=== PATIENT | female | born 1970 | race Two or more races ===

== ENCOUNTER 2017-04-11 08:34 | Inpatient (IN) | payer OTHER ==
[~2017-04-11] VITALS: Ht 165.1 cm; Wt 86.4 kg
[2017-04-11 08:51] VITALS: Ht 165.1 cm; Wt 86.4 kg
[2017-04-11 12:08] LABS: BASOPHIL % 0.6 % (0-2); PLATELET COUNT 276 x10^3mcL (130-400)
[2017-04-11 12:09] LABS: RED CELL DISTRIBUTION WIDTH 14.7 % (11.5-14.5)
[2017-04-11 12:14] LABS: CALCIUM 8.4 mg/dL (8.5-10.1); CARBON DIOXIDE 26.8 mmol/L (21-32); CHLORIDE SERUM 104 mmol/L (98-107); CREATININE SERUM 0.6 mg/dL (0.6-1.0); GFR1 > 60 mL/min; GLUCOSE SERUM 99 mg/dL (74-106); POTASSIUM SERUM 4.2 mmol/L (3.5-5.1); SODIUM SERUM 139 mmol/L (136-145)
[2017-04-11 12:25] LABS: ALKALINE PHOSPHATASE 55 U/L (46-116); ALT/SGPT 25 U/L (14-59); AST/SGOT 14 U/L (15-37); BILIRUBIN TOTAL 0.3 mg/dL (0.20-1.00); TOTAL PROTEIN, SERUM 7.3 g/dL (6.4-8.2)
[2017-04-11 12:54] LABS: ALBUMIN 3.3 g/dL (3.4-5.0)
[2017-04-11] MEDS ORDERED: CIPRO250 MG (14:42)
[2017-04-11] MEDS ORDERED: NATURAL IRON65 MG (14:43)
[2017-04-11] MEDS ORDERED: MASON NATURAL1000 IU (14:43)
[2017-04-11 16:06] VITALS: BP 129/77
[2017-04-11 16:32] LABS: CHOLESTEROL/HDL RATIO 2.9; MAGNESIUM 1.8 mg/dL (1.8-2.4); PHOSPHOROUS 3.3 mg/dL (2.5-4.9)
[2017-04-11 16:38] LABS: T3 TOTAL 0.93 ng/mL
[2017-04-11 16:53] LABS: FREE T4 1.4 ng/dL (0.76-1.46); FREE THYROXINE INDEX 2.5 ug/dL (1.4-4.5); T4(THYROXINE) 7.3 ug/dL (4.7-13.3)
[2017-04-11 20:35] LABS: microscopic required? NO
[2017-04-11 20:40] LABS: UA SPECIFIC GRAVITY 1.015 (1.005-1.035); urine erythrocyte NEGATIVE (NEGATIVE)
[2017-04-11 21:15] VITALS: BP 127/71
[2017-04-12 05:26] VITALS: BP 125/76
[2017-04-12 07:34] LABS: BASOPHIL % 0.4 % (0-2); PLATELET COUNT 258 x10^3mcL (130-400); RED CELL DISTRIBUTION WIDTH 15.2 % (11.5-14.5)
[2017-04-12 08:27] LABS: CALCIUM 8.7 mg/dL (8.5-10.1); CHLORIDE SERUM 107 mmol/L (98-107); CREATININE SERUM 0.7 mg/dL (0.6-1.0); GFR1 > 60 mL/min; GLUCOSE SERUM 91 mg/dL (74-106); MAGNESIUM 1.8 mg/dL (1.8-2.4); PHOSPHOROUS 4.3 mg/dL (2.5-4.9); POTASSIUM SERUM 4.5 mmol/L (3.5-5.1); SODIUM SERUM 141 mmol/L (136-145)
[2017-04-12 08:36] VITALS: BP 136/84
[2017-04-12 12:19] VITALS: BP 128/84
[2017-04-12 16:33] VITALS: BP 124/70
[2017-04-12 21:05] VITALS: BP 145/90
[2017-04-12] MEDS ORDERED: LIPI10 PO (23:14)
[2017-04-12] MEDS ORDERED: COL100 PO (23:15)
[2017-04-12] MEDS ORDERED: APAP/HYDROCODON1 T13 PO (23:15)
[2017-04-12] MEDS ORDERED: MECLIZINE HYDRO25 M1 PO (23:15)
[2017-04-12] MEDS ORDERED: SIMETHICONE80 MG CH (23:15)
[2017-04-12 23:28] VITALS: BP 145/90
== END 2017-04-12 23:42 | disposition home or self-care (01) | DRG 48 ==
LOC: ED 08:34 → DU 15:19
PROVIDERS: Emergency Medicine; Family Medicine
DX: G90.8 Other disorders of autonomic nervous system (principal); E44.1 Mild protein-calorie malnutrition; I10 Essential (primary) hypertension; H81.10 Benign paroxysmal vertigo, unspecified ear; E78.5 Hyperlipidemia, unspecified; Z68.31 Body mass index [BMI] 31.0-31.9, adult; D64.9 Anemia, unspecified
CPT/HCPCS: 82962; 83880; 84439; J1885; J2270; J2405; J7030; J8597; Q0092